=== PATIENT | male | born 1980 | race African-American/Black ===

== ENCOUNTER 2019-02-01 09:29 | Emergency (ER) | payer MEDICAID ==
[~2019-02-01] VITALS: Ht 180.3 cm; Wt 113.0 kg
[2019-02-01 14:10] LABS: BASOPHILS % 0.8 % (0.0-2.0); EOSINOPHILS % 2.3 % (0.0-5.0); HEMATOCRIT. 47.8 % (42.0-52.0); HEMOGLOBIN. 16.5 g/dL (14.0-18.0); MEAN CORPUSCULAR HEMOGLOBIN 30.8 pg (28.0-32.0); MEAN CORPUSCULAR VOLUME 89.1 fL (80.0-94.0); MEAN PLATELET VOLUME 8.6 fl (7.4-10.4); MONOCYTES % 9.6 % (2.0-8.0); NEUTROPHILS % 46.3 % (40.0-76.0); PLATELET 189 x1000/uL (130-400); RED BLOOD CELL COUNT 5.37 mill/uL (4.7-6.1); RED CELL DISTRIBUTION WIDTH 13.5 % (11.6-14.6)
[2019-02-01 14:15] LABS: CHLORIDE 110 mEq/L (98-107)
[2019-02-01] MEDS ORDERED: IOHEXOL-300 100 ML BOTTLE ONE (15:54)
[2019-02-01 16:44] VITALS: BP 129/81
== END 2019-02-01 16:47 | disposition home or self-care (01) ==
LOC: ER 09:29
DX: S16.1XXA Strain of muscle, fascia and tendon at neck level, initial encounter (principal); S30.1XXA Contusion of abdominal wall, initial encounter; Z88.0 Allergy status to penicillin; V49.09XA Driver injured in collision with other motor vehicles in nontraffic accident, initial encounter; Y93.89 Activity, other specified; Y92.89 Other specified places as the place of occurrence of the external cause; Y99.8 Other external cause status
CPT/HCPCS: 36415; 72125; 74177; 80048; 85025; 99284; Q9967

== ENCOUNTER 2019-03-17 01:26 | Emergency (ER) | payer MEDICAID ==
[~2019-03-17] VITALS: Ht 180.3 cm; Wt 109.0 kg
[2019-03-17] MEDS ORDERED: HYDROCODONE/ACETAMINOPHEN 5/325MG TABLET PO ONE (04:30)
[2019-03-17 04:43] VITALS: BP 139/78
== END 2019-03-17 04:44 | disposition home or self-care (01) ==
LOC: ER 01:26
DX: K04.7 Periapical abscess without sinus (principal)
CPT/HCPCS: 99282